=== PATIENT | male | born 1960 | race Two or more races ===

== ENCOUNTER → 2017-01-04 | Outpatient (CLI) | payer MEDICARE, OTHER ==
[~2017-01-04] MED LIST: ALBUTEROL 0.5ML INH; CLARITIN10 M1 PO; LORTAB 7.5-5001 TAB PO; NO MEDICATIONS; PHENERGAN25 MG PO
--- NOTE | ~2017-01-04 | MR176 ---
[facility] A Service of [facility] RADIOLOGY TEXT RESULTS PATIENT: SHEREE RIZZO LOCATION: [facility] : 62 UNIT #: [id number] AGE: [address]: SAJI MARIE APRN SEX: M ORDER DR: [id number] [facility] [address] [place], [place] [address] [id number] O MR#: [id number] Acc #: [id number] NAME: SHEREE RIZZO : 1960 SEX: M STUDY DATE/TIME: 01/04/2017 17:14 UNIT: [facility] ROOM: STUDY DESCRIPTION: MR Thoracic Wo Contrast Attending Physician: Saji Marie A.P.R.N. Ordering Physician: Saji Marie A.P.R.N. Primary Care Physician: Messi Gardner M.D. MRI CENTER REPORT This report is preliminary unless electronic signature is present. EXAM Thoracic MRI without HISTORY Mid-back pain, right-sided for 4-6 months, no known injury. Primarily by the right shoulder blade. No surgery or cancer history. COMMENT MRI of the thoracic spine was performed without contrast using routine 1.5T imaging technique. There is no comparison study of the thoracic spine. Sagittal alignment is normal. Marrow signal intensities unremarkable allowing for vertebral body hemangioma incidentally noted at T5. Subtle disc desiccation mid to upper thoracic spine, age appropriate. Thoracic cord is normal in size and signal intensity. There is a tiny right paramedian disc protrusion at T7-8 but no canal stenosis. No obvious foraminal impingement. IMPRESSION Essentially age-appropriate MRI of the thoracic spine. Mild degenerative changes but no evidence for thoracic canal stenosis. Alignment is normal. Dictated by... eNema Barrett M.D. THIS IS AN ELECTRONICALLY VERIFIED REPORT Neema Barrett M.D. at 01/07/2017 5:54 PM KAYLIN/kathie TD: 01/07/2017 10:11 [facility] A Service of [facility] RADIOLOGY TEXT RESULTS PATIENT: SHEREE RIZZO LOCATION: [facility] : 61 UNIT #: [id number] AGE: [address]: SAJI MARIE APRN SEX: M ORDER DR: JOB #: [id number] MRI CENTER REPORT Page 1 of 1 COPY
== END | disposition home or self-care (01) ==
LOC: CMRI 16:51
DX: M54.9 Dorsalgia, unspecified (principal); M47.814 Spondylosis without myelopathy or radiculopathy, thoracic region
CPT/HCPCS: 72146